=== PATIENT | male | born 1950 | race Caucasian/White ===

== ENCOUNTER → 2020-03-12 14:32 | Outpatient (BNVA) | payer MEDICARE, OTHER, SELFPAY | PROVIDERS: PCP Internal Medicine; Visit Provider Urology | DX: N28.89 Other specified disorders of kidney and ureter (principal); N26.1 Atrophy of kidney (terminal); N28.1 Cyst of kidney, acquired; N20.0 Calculus of kidney | CPT/HCPCS: 99212 ==

== ENCOUNTER → 2020-08-27 15:43 | Outpatient (BNVA) | payer MEDICARE, OTHER, SELFPAY | PROVIDERS: PCP Internal Medicine; Visit Provider Urology | DX: N40.0 Benign prostatic hyperplasia without lower urinary tract symptoms (principal); R39.12 Poor urinary stream | CPT/HCPCS: 51798; 81002; 99212 ==